=== PATIENT | female | born 1985 | race Caucasian/White ===

== ENCOUNTER 2020-10-01 16:48 | Emergency (ER) | payer OTHER, SELFPAY ==
[~2020-10-01] VITALS: Ht 165.1 cm; Wt 85.7 kg
[2020-10-01 20:19] VITALS: BP 120/76
== END 2020-10-01 20:21 | disposition home or self-care (01) ==
LOC: M ED 16:48
DX: J02.9 Acute pharyngitis, unspecified (principal); R51.9 Headache, unspecified; F17.210 Nicotine dependence, cigarettes, uncomplicated